=== PATIENT | female | born 1995 | race American Indian/Alaskan Native ===

== ENCOUNTER 2017-02-07 13:22 | Emergency (ER) | payer OTHER ==
[2017-02-07 13:22] VITALS: BMI 29.9
[2017-02-07 13:33] VITALS: RESP 18; TEMP 98.3; O2SAT 100
[2017-02-07 13:53] LABS: URINE BILIRUBIN NEGATIVE (NEGATIVE); URINE BLOOD MODERATE (NEGATIVE); URINE GLUCOSE (UA) NEGATIVE (NEGATIVE); URINE KETONE NEGATIVE (NEGATIVE); URINE LEUKOCYTE ESTERASE SMALL Leu/uL (NEGATIVE); URINE UROBILINOGEN 0.2 E.U./dL (<1 E.U./dL)
[2017-02-07 13:54] LABS: URINE APPEARANCE SL CLOUDY (CLEAR); URINE COLOR YELLOW (YELLOW); URINE PROTEIN S mg/dL (<30 mg/dL)
[2017-02-07 13:56] LABS: URINE BACTERIA TRACE (NEG)
--- NOTE | 2017-02-07 14:48 | ED PDOC ---
Addendum entered and electronically signed by Luis A GONZALEZ,Brianda Bradford PA-C 03:02: Addendum Addendum: 02/09/17 16:00 Urine cx shows positive E coli, was Rx macrobid, but shows sensitivity to macrobid, will replace bactrim. Rx sent to her pharmacy [facility]. Original Note: Arrival/HPI - General Historian: Patient - History of Present Illness Time/Duration: 4-6 hours Symptom Onset: Sudden Symptom Course: Unchanged Quality: Aching Severity Level: 4, 5 Activities at Onset: Rest Context: Work <Nia Hernandez - Last Filed: 02/07/17 16:38> <Myron Kessler - Last Filed: 02/07/17 16:53> - General Chief Complaint: Female Genitourinary Time Seen by Provider: 02/07/17 13:31 - History of Present Illness Narrative History of Present Illness (Text): 02/07/17 This is a 21Y F with PMH of UTI who is here for urinary frequency and abdominal pain since this am. She reports she is fulling fullness in her lower abdomen. She denies having any dysuria, hematuria, back pain, fever, chills or vaginal bleeding or discharge. She is currently sexually active and uses condoms. She has been with the same partner for several months. (Nia Hernandez) Past Medical History - Provider Review Nursing Documentation Reviewed: Yes - Infectious Disease Hx of Infectious Diseases: None - Tetanus Immunization Tetanus Immunization: Unknown - Cardiac Hx Cardiac Disorders: No - Pulmonary Hx Respiratory Disorders: No - Neurological Hx Neurological Disorder: No - HEENT Hx HEENT Disorder: No - Renal Hx Renal Disorder: No - Endocrine/Metabolic Hx Endocrine Disorders: No - Hematological/Oncological Hx Blood Disorders: No - Integumentary Hx Dermatological Disorder: No - Musculoskeletal/Rheumatological Hx Musculoskeletal Disorders: No - Gastrointestinal Hx Gastrointestinal Disorders: No - Genitourinary/Gynecological Hx Genitourinary Disorders: Yes Hx Urinary Tract Infection: Yes - Psychiatric Hx Psychophysiologic Disorder: No Hx Substance Use: No - Anesthesia Hx Anesthesia: No <Nia Hernandez - Last Filed: 02/07/17 16:38> Family/Social History - Physician Review Nursing Documentation Reviewed: Yes Family/Social History: No Known Family HX Smoking Status: Never Smoked Hx Alcohol Use: No Hx Substance Use: No <Nia Hernandez - Last Filed: 02/07/17 16:38> Allergies/Home Meds <DavidNia - Last Filed: 02/07/17 16:38> <Myron Kessler - Last Filed: 02/07/17 16:53> Allergies/Adverse Reactions: Allergies No Known Allergies Allergy (Verified 02/07/17 13:28) Review of Systems - Physician Review All systems were reviewed & negative as marked: Yes - Review of Systems Constitutional: Normal Respiratory: Normal Cardiovascular: Normal Gastrointestinal: Abdominal Pain Genitourinary Female: Frequency. absent: Dysuria, Hematuria, Vaginal Bleeding, Vaginal Discharge Musculoskeletal: Normal Skin: Normal Neurological: Normal <DavidNia - Last Filed: 02/07/17 16:38> Physical Exam Temperature: Afebrile Blood Pressure: Normal Pulse: Regular Respiratory Rate: Normal Appearance: Positive for: Well-Appearing, Non-Toxic, Comfortable Pain Distress: None Mental Status: Positive for: Alert and Oriented X 3 - Systems Exam Head: Present: Atraumatic, Normocephalic Mouth: Present: Moist Mucous Membranes Respiratory/Chest: Present: Clear to Auscultation, Good Air Exchange. No: Respiratory Distress, Accessory Muscle Use Cardiovascular: Present: Regular Rate and Rhythm, Normal S1, S2. No: Murmurs Abdomen: Present: Tenderness (suprapubic), Normal Bowel Sounds. No: Distention , Peritoneal Signs Back: Present: Normal Inspection. No: CVA Tenderness <DavidNia - Last Filed: 02/07/17 16:38> Medical Decision Making Re-evaluation Time: 15:44 Reassessment Condition: Improved - Lab Interpretations I have reviewed the lab results: Yes Interpretation: Abnormal lab values (U/A positive) - RAD Interpretation Beauty Artist: Radiologist <Nia Hernandez - Last Filed: 02/07/17 16:38> <Myron Kessler - Last Filed: 02/07/17 16:53> ED Course and Treatment: 02/07/17 15:38 Impression: This is a 21Y with no PMH here for urinary frequency, urgency and abdominal pain. Differential Diagnosis included but are not limited to: UTI, pyelonephritis Plan: -- Urine -- U/A -- Tramadol, Pyridium and Macrobid -- Reassess and disposition Progress Notes: Patient is negative for . Her U/A was positive for leukocyte esterase. She was seen by PMD, Dr. Grimes. Patient was still in pain. Pelvic ultrasound ordered. 02/07/17 15:56 (Nia Hernandez) Patient seen and examined with resident. Came up with treatment and disposition plan with resident. The patient is a 21 year old female who comes to the emergency department for evaluation of urinary frequency and abdominal pain. Additional HPI details as noted by the resident. On physical examination the patient has tenderness with palpation to the suprapubic region. Lab work, and urinalysis and transvaginal ultrasound ordered to rule out pelvic pathology. Patient seen by Dr. Grimes here in the emergency department. Differential includes UTI vs. pyelonephritis vs. cyst. Patient given Toradol for pain and Macrobid for infection. On re-evaluation, the patient feels better and is in no acute distress. Results and plan were discussed with the patient, who expresses understanding. Patient in agreement with plan to discharged home. Patient is stable for discharge. Patient was instructed to follow up with physician/clinic in 1-2 days or return if symptoms worsen or new concerning symptoms arise. (Myron Kessler) - Lab Interpretations Lab Results: Lab Results 02/07/17 13:41: Urine Color Yellow, Urine Appearance Sl cloudy, Urine pH 6.0, Ur Specific [place] >= 1.030, Urine Protein S, Urine Glucose (UA) Negative, Urine Ketones Negative, Urine Blood Moderate H, Urine Nitrate Negative, Urine Bilirubin Negative, Urine Urobilinogen 0.2, Ur Leukocyte Esterase Small H, Urine RBC 2 - 5, Urine WBC 5 - 10, Ur Epithelial Cells 4 - 5, Urine Bacteria Trace - RAD Interpretation Narrative RAD Interpretations (Text): 02/07/17 16:19 Transvaginal U/S unremarkable. Normal ovaries. (Nia Hernandez) Radiology Orders: 02/07/17 14:43 TRANSVAGINAL [US] Stat - Medication Orders Current Medication Orders: Discontinued Medications Ketorolac Tromethamine (Toradol) 60 mg IM STAT STA Stop: 02/07/17 14:42 Last Admin: 02/07/17 15:19 Dose: 60 mg Nitrofurantoin Macrocrystals (Macrobid) 100 mg PO ONCE STA Stop: 02/07/17 14:42 Last Admin: 02/07/17 15:19 Dose: 100 mg Phenazopyridine HCl (Pyridium) 200 mg PO STAT STA Stop: 02/07/17 14:41 Last Admin: 02/07/17 15:19 Dose: 200 mg <Nia Hernandez - Last Filed: 02/07/17 16:38> - PA / [employer] / Resident Statement / has reviewed & agrees with the documentation as recorded. MD/ has examined the patient and agrees with the treatment plan. - Scribe Statement The provider has reviewed the documentation as recorded by the Scribe <Myron Kessler - Last Filed: 02/07/17 16:53> - Scribe Statement Jose Ramon Provider Scribe Attestation: All medical record entries made by the Scribe were at my direction and personally dictated by me. I have reviewed the chart and agree that the record accurately reflects my personal performance of the history, physical exam, medical decision making, and the department course for this patient. I have also personally directed, reviewed, and agree with the discharge instructions and disposition. (Myron Kessler) Disposition/Present on Arrival - Present on Arrival Any Indicators Present on Arrival: No History of DVT/PE: No History of Uncontrolled Diabetes: No Urinary Catheter: No History of Decub. Ulcer: No History Surgical Site Infection Following: None - Disposition Have Diagnosis and Disposition been Completed?: Yes Disposition Time: 16:19 Patient Plan: Discharge <Nia Hernandez - Last Filed: 02/07/17 16:38> <Myron Kessler - Last Filed: 02/07/17 16:53> - Disposition Diagnosis: UTI (urinary tract infection) Disposition: HOME/ ROUTINE Condition: GOOD Discharge Instructions (ExitCare): Urinary Tract Infection in Women (ED) Print Language: ALBANIAN Additional Instructions: Ivana, thank you for letting us take care of you today. Your provider was Dr. Hernandez. You were treated for UTI. The emergency medical care you received today was directed at your acute symptoms. If you were prescribed any medication , please fill it and take as directed. It may take several days for your symptoms to resolve. Return to the Emergency Department if your symptoms worsen , do not improve, or if you have any other problems. Please contact your doctor or call one of the physicians/clinics you have been referred to that are listed on the Patient Visit Information form that is included in your discharge packet. Bring any paperwork you were given at discharge with you along with any medications you are taking to your follow up visit. Our treatment cannot replace ongoing medical care by a primary care provider (PCP) outside of the emergency department. Thank you for allowing the [facility] team to be part of your care today. If you had an X-Ray or CT scan: A Radiologist will review the ED reading if any change in treatment is needed we will contact you. If you had a blood, urine, or wound culture: It will take several days for the results, if any change in treatment is needed we will contact you. If you had an STI test: It will take 48 hours for the results. Please call after 1 week if you have not heard back. Prescriptions: Nitrofurantoin Macrocrystals [Macrobid] 100 mg PO BID #14 cap Phenazopyridine [Pyridium] 200 mg PO TID #6 tab Referrals: Praveen Grimes, [Primary Care Provider] - Follow up with primary
--- NOTE | 2017-02-07 15:53 | US ---
HISTORY: pelvic pain - r/o ovarian torsion LMP 01/14/2017 COMPARISON: None available. TECHNIQUE: Transvaginal FINDINGS: UTERUS: Measures 7.6 x 4.0 x 4.3 cm. Anteverted and normal in size and appearance No fibroid or other mass lesion seen. ENDOMETRIUM: Measures 11 mm in diameter. Unremarkable. CERVIX: No cervical abnormality identified. RIGHT OVARY: Measures 3.5 x 2.2 x 3.1 cm. No solid mass. Normal flow. LEFT OVARY: Measures 2.5 x 3.5 x 2.0 cm. No solid mass. Normal flow. FREE FLUID: No significant free fluid noted. OTHER FINDINGS: None. IMPRESSION: Unremarkable pelvic ultrasound. Normal flow to both ovaries
[2017-02-07 15:57] VITALS: BP 141/79; PULSE 75
== END 2017-02-07 16:32 | disposition home or self-care (01) ==
LOC: ED 13:22
DX: N39.0 Urinary tract infection, site not specified (principal)
CPT/HCPCS: 76830; 81001; 87086; 96372; 99284; J1885